=== PATIENT | male | born 1990 | race Caucasian/White ===

== ENCOUNTER 2019-08-24 19:24 | Inpatient (IN) | payer MEDICAID ==
[~2019-08-24] VITALS: Ht 152.4 cm; Wt 68.0 kg
[2019-08-24] MEDS ORDERED: ONDANSETRON HCL 4MG/2ML INJ IV STA (20:13)
[2019-08-24] MEDS ORDERED: SODIUM CHLORIDE 0.9% 1,000 ML IV ONE (20:13)
[2019-08-24] MEDS ORDERED: PIPERACILLIN/TAZ 3.375G PREMIX 50 ML IV ONE (20:15)
[2019-08-24] MEDS ORDERED: VANCOMYCIN 1 G PREMIX 200 ML IV ONE (20:15)
[2019-08-24 20:30] LABS: BASOPHILS % 0.3 % (0.0-2.0); EOSINOPHILS % 0.1 % (0.0-5.0); HEMATOCRIT. 38.8 % (42.0-52.0); HEMOGLOBIN. 13.4 g/dL (14.0-18.0); LYMPHOCYTES % 10.2 % (20.0-50.0); MEAN CORPUSCULAR HEMOGLOBIN 31.7 pg (28.0-32.0); MEAN CORPUSCULAR VOLUME 91.5 fL (80.0-94.0); MEAN PLATELET VOLUME 9.4 fl (7.4-10.4); MONOCYTES % 13.3 % (2.0-8.0); NEUTROPHILS % 76.1 % (40.0-76.0); PLATELET 183 x1000/uL (130-400); RED BLOOD CELL COUNT 4.24 mill/uL (4.7-6.1); RED CELL DISTRIBUTION WIDTH 13.4 % (11.6-14.6)
[2019-08-24 20:32] LABS: CHLORIDE 101 mEq/L (98-107)
[2019-08-24 20:35] LABS: INR 1.1; PROTHROMBIN TIME 10.8 sec (9.6-11.0)
[2019-08-24 21:20] LABS: CLARITY URINE TURBID (CLEAR); COLOR URINE YELLOW (YELLOW); KETONES URINE TRACE (NEGATIVE); LEUKOCYTE ESTERASE URINE 3+ (NEGATIVE); NITRITE URINE NEGATIVE (NEGATIVE); OCCULT BLOOD URINE 2+ (NEGATIVE); PH URINE 6.5 (4.5-8.0); PROTEIN URINE 2+ (NEGATIVE); SPECIFIC GRAVITY URINE 1.012 (1.005-1.030); UROBILINOGEN URINE 0.2 E.U./dL (0.2-1.0)
[2019-08-24] MEDS ORDERED: ACETAMINOPHEN 650MG SUPP PR ONE (21:30)
[2019-08-25] VITALS (8 sets, daily range): BP systolic 91–160; BP diastolic 52–133
[2019-08-25] MEDS ORDERED: ONDANSETRON HCL 4MG/2ML INJ IV PRN (00:30)
[2019-08-25] MEDS ORDERED: MORPHINE SULFATE 2 MG/ML CPJ (NOT FOR IM USE) IV PRN (00:30)
[2019-08-25] MEDS ORDERED: HYDROCODONE/ACETAMINOPHEN 5/325MG TABLET PO PRN (00:30)
[2019-08-25] MEDS ORDERED: LORAZEPAM 2MG/ML CPJ IV PRN (00:30)
[2019-08-25] MEDS ORDERED: CEFTRIAXONE 1 G PREMIX 50 ML IV NR (01:00)
[2019-08-25] MEDS ORDERED: THIAMINE HCL 100MG TABLET PO SCH (01:00)
[2019-08-25] MEDS: SODIUM CHLORIDE 0.9% 1,000 ML IV SCH ×3 (01:43→22:54)
[2019-08-25 03:22] LABS: *BARBITURATES SCREEN URINE NEGATIVE (NEGATIVE); CANNABINOID URINE SCREEN NEGATIVE (NEGATIVE)
[2019-08-25 03:23] LABS: *AMPHETAMINES SCREEN URINE NEGATIVE (NEGATIVE); *BENZODIAZEPINES SCREEN URINE NEGATIVE (NEGATIVE); *COCAINE SCREEN URINE NEGATIVE (NEGATIVE); METHADONE URINE SCREEN NEGATIVE (NEGATIVE); OPIATES URINE SCREEN NEGATIVE (NEGATIVE); PHENCYCLIDINE URINE SCREEN NEGATIVE (NEGATIVE)
[2019-08-25] MEDS ORDERED: POLY17PO28 PO (04:38)
[2019-08-25] MEDS ORDERED: DIVA250T45 PO (04:38)
[2019-08-25] MEDS ORDERED: OLAN5TAB26 PO (04:38)
[2019-08-25] MEDS ORDERED: BISA5TAB10 PO (04:38)
[2019-08-25] MEDS ORDERED: ASCO-339 PO (04:38)
[2019-08-25] MEDS ORDERED: MULT-28 PO (04:38)
[2019-08-25] MEDS ORDERED: BACL-141 PO (04:38)
[2019-08-25] MEDS ORDERED: LORA10CA PO (04:38)
[2019-08-25] MEDS ORDERED: ENOXAPARIN 40MG/0.4ML SYR SUBCUT SCH (09:00)
[2019-08-25] MEDS: CEFTRIAXONE 1 G PREMIX 50 ML IV SCH (22:53)
[2019-08-25] MEDS ORDERED: CEFTRIAXONE 1 G PREMIX 50 ML IV SCH (23:00)
[2019-08-26] VITALS: BP 123/83
[2019-08-26 04:00] VITALS: BP 127/82
[2019-08-26 05:47] LABS: HEMATOCRIT. 37.7 % (42.0-52.0); HEMOGLOBIN. 12.8 g/dL (14.0-18.0); MEAN CORPUSCULAR HEMOGLOBIN 31.4 pg (28.0-32.0); MEAN CORPUSCULAR VOLUME 92.6 fL (80.0-94.0); MEAN PLATELET VOLUME 8.7 fl (7.4-10.4); PLATELET 181 x1000/uL (130-400); RED BLOOD CELL COUNT 4.07 mill/uL (4.7-6.1); RED CELL DISTRIBUTION WIDTH 13.7 % (11.6-14.6)
[2019-08-26 06:18] LABS: CHLORIDE 107 mEq/L (98-107)
[2019-08-26 07:59] LABS: PLATELET ESTIMATE NORMAL
[2019-08-26 08:00] VITALS: BP 109/42
[2019-08-26] MEDS: THIAMINE HCL 100MG TABLET PO SCH (09:21)
[2019-08-26] MEDS: ENOXAPARIN 40MG/0.4ML SYR SUBCUT SCH (09:22)
[2019-08-26 12:00] VITALS: BP 101/65
[2019-08-26] MEDS: SODIUM CHLORIDE 0.9% 1,000 ML IV SCH ×2 (13:58→22:34)
[2019-08-26 16:00] VITALS: BP 106/73
[2019-08-26 20:35] VITALS: BP 117/82
[2019-08-26] MEDS: CEFTRIAXONE 1 G PREMIX 50 ML IV SCH (22:28)
[2019-08-27 00:20] VITALS: BP 117/84
[2019-08-27 04:00] VITALS: BP 110/82
[2019-08-27 08:00] VITALS: BP 131/63
[2019-08-27] MEDS: THIAMINE HCL 100MG TABLET PO SCH (09:12)
[2019-08-27] MEDS: ENOXAPARIN 40MG/0.4ML SYR SUBCUT SCH (09:13)
[2019-08-27 12:00] VITALS: BP 110/73
[2019-08-27] MEDS ORDERED: MEROPENEM 1,000 MG in SODIUM CHLORIDE 0.9% 100 ML IV SCH (12:15)
[2019-08-27] MEDS: SODIUM CHLORIDE 0.9% 1,000 ML IV SCH (12:41)
[2019-08-27 12:56] LABS: BASOPHILS % 0.3 % (0.0-2.0); HEMATOCRIT. 35.9 % (42.0-52.0); HEMOGLOBIN. 12.3 g/dL (14.0-18.0); MEAN CORPUSCULAR HEMOGLOBIN 31.7 pg (28.0-32.0); MEAN CORPUSCULAR VOLUME 92.4 fL (80.0-94.0); MEAN PLATELET VOLUME 7.8 fl (7.4-10.4); MONOCYTES % 7.6 % (2.0-8.0); NEUTROPHILS % 76.1 % (40.0-76.0); PLATELET 193 x1000/uL (130-400); RED BLOOD CELL COUNT 3.89 mill/uL (4.7-6.1); RED CELL DISTRIBUTION WIDTH 13.4 % (11.6-14.6)
[2019-08-27 13:14] LABS: CHLORIDE 111 mEq/L (98-107)
[2019-08-27] MEDS: MEROPENEM 500MG in NORMAL SALINE 50ML IV SCH ×2 (14:35→22:55)
[2019-08-27 16:00] VITALS: BP 95/60
[2019-08-27 20:24] VITALS: BP 107/50
[2019-08-28 00:11] VITALS: BP 109/74
[2019-08-28 04:00] VITALS: BP 107/77
[2019-08-28] MEDS: MEROPENEM 500MG in NORMAL SALINE 50ML IV SCH ×3 (05:22→21:55)
[2019-08-28 08:23] VITALS: BP 110/76
[2019-08-28] MEDS: THIAMINE HCL 100MG TABLET PO SCH (08:57)
[2019-08-28] MEDS: ENOXAPARIN 40MG/0.4ML SYR SUBCUT SCH (08:58)
[2019-08-28] MEDS ORDERED: POTASSIUM CHLORIDE 20MEQ TABLET SR PO NR (11:30)
[2019-08-28 11:35] VITALS: BP 109/72
[2019-08-28] MEDS: SODIUM CHLORIDE 0.9% 1,000 ML IV SCH ×3 (11:41→21:55)
[2019-08-28 16:13] VITALS: BP 111/77
[2019-08-28 16:32] LABS: BASOPHILS % 0.5 % (0.0-2.0); EOSINOPHILS % 1.2 % (0.0-5.0); HEMATOCRIT. 38.1 % (42.0-52.0); LYMPHOCYTES % 26.7 % (20.0-50.0); MEAN CORPUSCULAR HEMOGLOBIN 31.7 pg (28.0-32.0); MEAN CORPUSCULAR VOLUME 92.6 fL (80.0-94.0); MEAN PLATELET VOLUME 8.3 fl (7.4-10.4); MONOCYTES % 12.6 % (2.0-8.0); PLATELET 194 x1000/uL (130-400); RED BLOOD CELL COUNT 4.11 mill/uL (4.7-6.1); RED CELL DISTRIBUTION WIDTH 13.3 % (11.6-14.6)
[2019-08-28 16:45] LABS: CHLORIDE 111 mEq/L (98-107)
[2019-08-28 20:27] VITALS: BP 115/78
[2019-08-29 00:38] VITALS: BP 118/72
[2019-08-29 04:00] VITALS: BP 108/72
[2019-08-29] MEDS: MEROPENEM 500MG in NORMAL SALINE 50ML IV SCH ×2 (05:32→16:28)
[2019-08-29 08:05] VITALS: BP 126/79
[2019-08-29] MEDS: THIAMINE HCL 100MG TABLET PO SCH (08:34)
[2019-08-29] MEDS: ENOXAPARIN 40MG/0.4ML SYR SUBCUT SCH (08:34)
[2019-08-29] MEDS: SODIUM CHLORIDE 0.9% 1,000 ML IV SCH (08:36)
[2019-08-29] MEDS ORDERED: POTASSIUM CHLORIDE 20MEQ TABLET SR PO NR (11:00)
[2019-08-29 12:00] VITALS: BP 113/82
[2019-08-29 15:58] VITALS: BP 109/72
== END 2019-08-29 19:01 | DRG 720 ==
LOC: ER 19:24 → 6WST 22:10 → EDBEDREQTM 22:11 → EDBEDREQ 22:11 → EDBEDREQSVC 22:11 → ENRESERV 08-25 02:04
PROVIDERS: ADMIT Internal Medicine Nephrology; ATTEND Internal Medicine Nephrology
DX: A41.9 Sepsis, unspecified organism (principal); E87.2 Acidosis; E44.1 Mild protein-calorie malnutrition; E87.1 Hypo-osmolality and hyponatremia; N39.0 Urinary tract infection, site not specified; R74.0 Nonspecific elevation of levels of transaminase and lactic acid dehydrogenase [LDH]; D64.9 Anemia, unspecified; R62.50 Unspecified lack of expected normal physiological development in childhood; I10 Essential (primary) hypertension; B96.20 Unspecified Escherichia coli [E. coli] as the cause of diseases classified elsewhere; Z16.12 Extended spectrum beta lactamase (ESBL) resistance; J98.11 Atelectasis; Z86.718 Personal history of other venous thrombosis and embolism; Z79.899 Other long term (current) drug therapy; Z68.29 Body mass index [BMI] 29.0-29.9, adult; Q54.9 Hypospadias, unspecified; F79 Unspecified intellectual disabilities
CPT/HCPCS: 36415; 71045; 80048; 80305; 81003; 82962; 83605; 83880; 84145; 84484; 87077; 87186; 93005; 93970; 96365; 99291; J0696; J1650; J2185; J2270; J2405; J2543; J3370; J7030; A4315